=== PATIENT | male | born 1935 | race African-American/Black ===

== ENCOUNTER 2016-08-27 13:17 | Observation (INO) ==
[2016-08-27] MEDS ORDERED: MAGNESIUM SULF RIDER 2 GM in PREMIX 1 EACH IV PRN (14:28)
[2016-08-27] MEDS ORDERED: BISACODYL 5 MG TABLET PO PRN (14:28)
[2016-08-27] MEDS ORDERED: ACETAMINOPHEN 325 MG TABLET PO PRN (14:28)
[2016-08-27] MEDS ORDERED: ZALEPLON 5 MG CAPSULE PO PRN (14:28)
[2016-08-27] MEDS ORDERED: MAGNESIUM SULF RIDER 4 GM in PREMIX 1 EACH IV PRN (14:28)
[2016-08-27] MEDS ORDERED: ONDANSETRON 4 MG/2 ML VIAL IV PRN (14:28)
[2016-08-27] MEDS ORDERED: DOCUSATE SODIUM 100 MG CAPSULE PO PRN (14:28)
--- NOTE | 2016-08-27 14:47 | EKG Report ---
Stationary ECG Study 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
[2016-08-27 15:01] LABS: Basophils % 0.6 % (0.0-0.8); Eosinophils % 0.9 % (0.00-10.9); Hematocrit 41.9 VOL% (42.0-52.0); Hemoglobin 13.7 GM/DL (14.0-18.0); Immature Granulocytes % 0.2 %; Immature Granulocytes Absolute 0.01 #; Lymphocytes # 1.5 10*3/uL (1.4-4.0); Lymphocytes % 32.7 % (21.2-54.2); Mean Corpuscular HGB Conc 32.7 GM/DL (32-36); Mean Corpuscular Hemoglobin 30 PG (27-34); Mean Corpuscular Volume 90.1 FL (87-102); Mean Platelet Volume 11.6 FL (9.6-12.0); Monocytes # 0.5 10*3/uL (0.11-0.8); Monocytes % 10.5 % (1.7-12.7); Neutrophils # 2.6 10*3/uL (1.4-7.4); Neutrophils % 55.1 % (38.7-73.9); Platelet Count 221 T/CUMM (130-400); Red Blood Count 4.65 MC/CUMM (3.8-5.5); Red Cell Distribution Width 13.6 % (9.3-17.3); White Blood Count 4.7 T/CUMM (4-12)
[2016-08-27] MEDS: PANTOPRAZOLE 40 MG TABLET PO SCH (15:05)
--- NOTE | 2016-08-27 15:06 | XRay Report ---
Exam: XR chest 1V portable Indication: Shortness of breath Comparison study: September 17, 2008 Findings: Cardiac silhouette is borderline enlarged. Otherwise, the heart, mediastinum and bony structures are stable from prior. There is no focal consolidation, pneumothorax or pleural effusion identified. Impression: No acute cardiopulmonary process. Otherwise, no significant change. PROCEDURE INTERPRETED AT [facility] DEPARTMENT OF RADIOLOGY Final Report Signed by: Price Salinas
[2016-08-27] MEDS: SODIUM CHLORIDE 0.45% 1,000 ML IV SCH (15:22)
[2016-08-27 15:26] LABS: Troponin I Only 0.016 NG/ML (0.00-0.045)
--- NOTE | 2016-08-27 15:29 | Event Note ---
See scanned in H&P from clinic which serves as H&P during this admission. Stat CIEs, EKG and echo being ordered. Thyroid US for thyromegaly
[2016-08-27 15:31] LABS: Albumin 3.5 G/DL (3.4-5.0); Bilirubin,Total 0.4 MG/DL (0.2-1.0); Calcium 9.1 MG/DL (8.5-10.1); Osmolality,Calculated 286.8 MOS/KG (273-304); Thyroid Stimulating Hormone 0.903 uIU/ml (0.358-3.74); Total Protein 6.7 G/DL (6.4-8.3); Troponin I Only 0.019 NG/ML (0.00-0.045)
[2016-08-27] MEDS ORDERED: hydrALAZINE 20 MG/1 ML VIAL IV PRN (16:49)
[2016-08-27] MEDS ORDERED: ENOXAPARIN 100 MG/ML SYRINGE SUBCUT ONE (16:55)
[2016-08-27] MEDS ORDERED: DEXTROSE 50% 25 GM/50 ML VIAL IV PRN (17:04)
[2016-08-27] MEDS ORDERED: GLUCAGON 1 MG VIAL IM PRN (17:04)
--- NOTE | 2016-08-27 17:04 | Ultrasound Report ---
Exam: US thyroid Date: 08/27/2016 3:48 PM Comparison: None Indication: Left lobular thyroid enlargement Technique:[Multiple real-time scans were tender thyroid gland. Color-flow scans obtained. Ultrasound images were captured and stored.] Findings: The right lobe measures 68 x 33 x 35 mm. The left lobe measures 56 x 40 x 19 mm. Inhomogeneous echogenicity throughout both lobes. 18 x 18 x 17 mm predominantly solid nodule in the lower pole of the right lobe. 9 x 6 x 11 mm predominantly solid nodule in the midpole of the left lobe. Color flow documented. Impression: Enlargement of both lobes of the thyroid gland with inhomogeneous echogenicity throughout which could be related to multinodular goiter. Indeterminate solid bilateral nodules. Nuclear medicine MORENO uptake and thyroid scan, short-term follow-up thyroid ultrasound, or ultrasound guided thyroid biopsy may be helpful for further evaluation. The Ultrasound images were captured and stored. PROCEDURE INTERPRETED AT [facility] DEPARTMENT OF RADIOLOGY Final Report Signed by: Dr. Alisha Campos
[2016-08-27] MEDS: NITROGLYCERIN 2% OINT 1 INCH/GM PACK TOP SCH ×2 (17:36→17:55)
[2016-08-27] MEDS: ASPIRIN EC 325 MG TABLET PO SCH (17:37)
--- NOTE | 2016-08-27 17:40 | Event Note ---
H&P scan from the clinic. Please see this for details. The patient was seen and examined and interviewed today. I think he should undergo cardiac catheterization. We're going to schedule this for tomorrow. I discussed the case with Dr. Gallardo who will be performing the procedure.
[2016-08-27 17:56] LABS: PT Patient Result 10.8 SECS
[2016-08-27 18:10] LABS: Troponin I Only 0.015 NG/ML (0.00-0.045)
[2016-08-27 20:42] LABS: Troponin I Only 0.019 NG/ML (0.00-0.045)
[2016-08-27] MEDS ORDERED: CARVEDILOL 12.5 MG TABLET PO SCH (21:00)
[2016-08-27] MEDS: DOCUSATE SODIUM 100 MG CAPSULE PO SCH (21:10)
[2016-08-27] MEDS: SIMVASTATIN 20 MG TABLET PO SCH (21:10)
[2016-08-27] MEDS: CARVEDILOL 25 MG TABLET PO SCH (21:10)
[2016-08-27] MEDS: glipiZIDE 5 MG TABLET PO SCH (21:13)
[2016-08-27] MEDS: INSULIN REGULAR 100 UNIT/ML SUBCUT SCH (22:35)
[2016-08-28] MEDS: NITROGLYCERIN 2% OINT 1 INCH/GM PACK TOP SCH ×3 (01:50→12:19)
[2016-08-28 05:04] LABS: Basophils % 0.2 % (0.0-0.8); Eosinophils # 0.1 10*3/uL (0.0-0.87); Eosinophils % 1.3 % (0.00-10.9); Hematocrit 38.9 VOL% (42.0-52.0); Hemoglobin 12.9 GM/DL (14.0-18.0); Immature Granulocytes % 0.2 %; Immature Granulocytes Absolute 0.01 #; Lymphocytes # 1.6 10*3/uL (1.4-4.0); Lymphocytes % 32.6 % (21.2-54.2); Mean Corpuscular HGB Conc 33.2 GM/DL (32-36); Mean Corpuscular Hemoglobin 30 PG (27-34); Mean Corpuscular Volume 89.8 FL (87-102); Mean Platelet Volume 11.7 FL (9.6-12.0); Monocytes # 0.5 10*3/uL (0.11-0.8); Monocytes % 10.7 % (1.7-12.7); Neutrophils # 2.6 10*3/uL (1.4-7.4); Platelet Count 197 T/CUMM (130-400); Red Blood Count 4.33 MC/CUMM (3.8-5.5); Red Cell Distribution Width 13.5 % (9.3-17.3); White Blood Count 4.8 T/CUMM (4-12)
[2016-08-28 05:29] LABS: Calcium 8.5 MG/DL (8.5-10.1); Osmolality,Calculated 291.6 MOS/KG (273-304); Potassium 3.6 MMOL/L (3.5-5.1)
[2016-08-28 05:33] LABS: Bilirubin,Total 0.8 MG/DL (0.2-1.0); Calcium 8.5 MG/DL (8.5-10.1); Osmolality,Calculated 293.4 MOS/KG (273-304); Potassium 3.5 MMOL/L (3.5-5.1); Risk Ratio 2.6; Total Protein 6.1 G/DL (6.4-8.3); VLDL CHOLESTEROL 25.2 MG/DL
[2016-08-28] MEDS: SODIUM CHLORIDE 0.45% 1,000 ML IV SCH ×2 (05:39→15:19)
[2016-08-28] MEDS ORDERED: DIAZEPAM 5 MG TABLET PO ONE (07:00)
[2016-08-28] MEDS ORDERED: diphenhydrAMINE CAP 25 MG CAPSULE PO ONE (07:00)
[2016-08-28] MEDS ORDERED: MAGNESIUM SULF RIDER 2 GM in PREMIX 1 EACH IV PRN (07:00)
[2016-08-28] MEDS ORDERED: POTASSIUM CHLORIDE RIDER 10 MEQ in PREMIX 1 EACH IV PRN (07:00)
--- NOTE | 2016-08-28 07:23 | EKG Report ---
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
[2016-08-28] MEDS: POTASSIUM CHLORIDE 20 MEQ TABLET PO SCH (09:15)
[2016-08-28] MEDS: PANTOPRAZOLE 40 MG TABLET PO SCH (09:15)
[2016-08-28] MEDS: CARVEDILOL 25 MG TABLET PO SCH ×2 (09:15→20:34)
[2016-08-28] MEDS: INSULIN REGULAR 100 UNIT/ML SUBCUT SCH ×4 (09:15→20:45)
[2016-08-28] MEDS: ASPIRIN EC 325 MG TABLET PO SCH (09:15)
[2016-08-28] MEDS: glipiZIDE 5 MG TABLET PO SCH ×2 (09:16→20:34)
[2016-08-28] MEDS: DOCUSATE SODIUM 100 MG CAPSULE PO SCH ×2 (09:16→20:35)
--- NOTE | 2016-08-28 09:18 | Event Note ---
Given Mr. Irwin symptoms suggestive of accelerated angina, and history of previous coronary stent by his report, he is scheduled for left heart catheterization later today from right groin access. I discussed with the patient arrest and benefits of heart catheterization including but not limited to: , stroke, heart attack, vascular damage, reaction to medicine or dye, bleeding requiring blood transfusion, failure the procedure, possible need for planned her emergency heart surgery. I have answered all the patient's questions and the patient is agreeable to proceed.
[2016-08-28] MEDS ORDERED: LIDOCAINE 1% 20 ML VIAL ONE (12:52)
[2016-08-28] MEDS ORDERED: HYDROmorphone 2 MG/1 ML VIAL ONE (13:15)
[2016-08-28] MEDS ORDERED: MIDAZOLAM 2 MG/2 ML VIAL ONE (13:15)
[2016-08-28] MEDS ORDERED: ENOXAPARIN 30 MG/0.3 ML SYRINGE ONE (13:44)
[2016-08-28] MEDS ORDERED: ENOXAPARIN 60 MG/0.6 ML SYRINGE ONE (13:44)
[2016-08-28] MEDS ORDERED: TICAGRELOR 90 MG TABLET ONE (13:52)
[2016-08-28] MEDS ORDERED: ceFAZolin 1,000 MG VIAL ONE (14:09)
--- NOTE | 2016-08-28 14:23 | Cardiac Catheterization ---
Date of Procedure:: 08/28/16 Post-op diagnosis: same Procedure: Her seizures performed: 1. Coronary angiography 2. Angioplasty and stenting of critical mid LAD disease which only steno (2.75 x 24 Synergy) 3. Right femoral arterial reclosure with Angio-Seal device Brief clinical summary: Mr. Irwin 80-year-old with symptoms suggestive of exertional angina with history of previous CAD. He is followed by Dr. Aponte Description of procedure: After obtaining informed consent, the right groin was prepped and draped in the usual sterile fashion. Next a short 6 Armenian sheath was placed in the right femoral artery using a modified Seldinger technique, after the patient received IV sedation and local anesthetic. Next a JL4 catheter was advanced over a guidewire under fluoroscopic guidance, and was engaged to the left coronary artery after which angiography was performed in multiple views. This was then removed over a wire, and a JR4 catheter was advanced in similar fashion was engaged the right coronary artery after which angiography was performed in multiple views. Percutaneous coronary intervention wasn't performed as described below. After intervention, performed an angiogram of the sheath which showed that it was inserted in the right common femoral artery in a vessel suitable for closure. Hemostasis was obtained with Angio-Seal device with no residual bleeding. 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 Percutaneous coronary intervention: The patient arrived the cath of on aspirin. He was given loading dose of Brilinta on the table as well as 0.7 millions per kilo of intravenous Lovenox. An EBU 3.5 guiding catheter was advanced and provided suboptimal support. I tried advance a Prowater wire but it was clear that this was not adequate support. Therefore was removed over wire. Next an AL-1 guide was advanced but was too short. This is removed over wire nail to catheter was advanced which was the right size and fit the vessel well provided good support. Next a Prowater wire was advanced in the distal LAD with only minimal difficulty. Next a 2.5 x 20 noncompliant balloon was advanced across area of disease was flighted to nominal pressures. There was residual stenosis of nearly 50%. The balloon was removed and a 2.75 x 24 Synergy covered stent was advanced across her disease was deployed at nominal and eventually above nominal pressures with an excellent angiographic result disability was undersized prostate. Therefore the balloon was removed and a 3.5 x 15 noncompliant balloon was advanced in the proximal portion stent was dilated to nominal pressures and is still appear to be a little undersized. Therefore I redilated to rated burst pressure approximately 3.69 mm with a very good angina for result. The patient on she will without, occasion. Coronary angiography: Left main coronary artery has 30-40% proximal stenosis and is a large vessel. Left anterior descending artery is of average caliber and reaches the apex after giving off 3 thin diagonal branches. There is a tubular 90% high mid stenosis starting immediately after the takeoff of the first septal sanding machine operator. The circumflex gives off 2 thinner than average recently long OM branches as well as a tiny 13 and on for branches late. The right coronary artery is dominant but is smaller than average caliber. There is a 50% tubular proximal stenosis and a subtotal mid RCA occlusion after the takeoff of a thin acute marginal. The RCA is occluded distally. The PDA and posterior Lockamy so filling by [id number] collaterals. Impression: 1. Right dominant system (smaller than average caliber vessel) 2. Two-vessel coronary artery disease as described above including but limited to: A. 90% tubular high mid LAD stenosis B. Subtotal mid RCA with distal RCA occlusion with filling of the PDA and posterolaterals by [id number]-ku-tzcdw collaterals. 3. Status post angioplasty and stenting of mid LAD with 2.75 x 24 drug-eluting Synergy stent with excellent result after postdilated the proximal portion of the stent with 3.5 x 15 noncompliant balloon Recommendation discussion: I believe he she did very good result regarding stenting Mr. Irwin's severe mid LAD stenosis. His RCA disease has not changed much since 2008. Intervention could be considered here if he is symptomatic. He will need to continue on baby aspirin Brilinta. He'll need to avoid squatting or lifting for the next one week. Anesthesia: minimal conscious sedation Surgeon / Physician: Ryan Gallardo Sales Development Coordinator: other Estimated blood loss: minimal Specimens: none sent Condition: stable Disposition: floor - Medications / Follow-up
--- NOTE | 2016-08-28 14:45 | EKG Report ---
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
--- NOTE | 2016-08-28 15:22 | Discharge Summary ---
Hospital Course - Hospital Course Hospital Course: Mr. Irwin, 80-year-old -[place]ian male, routinely followed by Dr. Tunde Aponte. Patient was directly admitted from cardiovascular [place] [facility] with complaints of chest discomfort. He underwent elective cardiac catheterization August 28, 2016 with the following impression noted: Impression: 1. Right dominant system (smaller than average caliber vessel) 2. Two-vessel coronary artery disease as described above including but limited to: A. 90% tubular high mid LAD stenosis B. Subtotal mid RCA with distal RCA occlusion with filling of the PDA and posterolaterals by [id number]-ev-jcwky collaterals. 3. Status post angioplasty and stenting of mid LAD with 2.75 x 24 drug-eluting Synergy stent with excellent result after postdilated the proximal portion of the stent with 3.5 x 15 noncompliant balloon Recommendation discussion: Good results achieved with stenting of the mid LAD stenosis. RCA disease has not changed much since 2008. Intervention could be considered here if he is symptomatic. He tolerated the procedure well without complication was returned to the telemetry unit in stable condition. Morning of discharge, his labs were stable and he has been ambulating without difficulty. Having felt him at maximal medical therapy, patient is being discharged home in stable condition. Discharge medications include the following: He will be given a 1-2 week follow-up with Dr. Aponte at [facility] with the following labs to be obtained, BMP, magnesium, CBC Patient's primary care provider is Dr. Felipe Noe. During the hospital stay, thyroid ultrasound was performed with the following impression noted: Enlargement of both lobes of the thyroid gland with inhomogenous echogenicity throughout which could be related to multinodular goiter. Indeterminate solid bilateral nodules. Nuclear medicine MORENO uptake and thyroid scan, short-term follow-up thyroid ultrasound, or ultrasound-guided thyroid biopsy may be helpful for further evaluation. I have informed the patient and his of the findings. I am going to arrange for him to be followed by Dr. Felipe Noe in approximately 2 weeks for further workup and management of this condition. Discharge medications include the following: Aspirin 81 mg orally daily Brilinta 90 mg orally twice daily without fail. He is being given a prescription card Coreg 25 mg's orally twice daily Isosorbide mononitrate 30 mg's orally daily Lisinopril/HCT 20/12.5 mg 1 p.o. daily Nifedipine XL 30 mg orally twice daily Pantoprazole 40 mg orally daily Potassium chloride 20 mEq orally daily Zocor 20 orally nightly - Time spent with patient Time with patient DS: Greater than 30 minutes Diagnosis - Discharge Diagnosis (1) CAD (coronary artery disease) Status: Chronic (2) Chest pain Status: Resolved (3) Hypertension Status: Chronic (4) Dyslipidemia Status: Chronic (5) Abnormal thyroid ultrasound Status: Chronic (6) Diabetes Status: Chronic Specialty Discharge - Follow Up or Referrals Follow up with: Felipe Noe MD [Primary Care Provider] - 09/12/16 11:00 am () Tunde Aponte MD [Physician] - 09/05/16 (1:00pm LABS 1:30pm APPOINTMENT) Discharge Plan - Discharge Data Disposition: Disch To Home/Self Care Condition at Discharge: Stable Discharge Diet: heart healthy Activity: other (Post cath expectations) Hygiene: other (Post cath expectations) Weight Bearing at Discharge: other (Post cath expectations) Driving: other (Post cath expectations) Contact your physician if you experience:: fever over 101, Difficulty voiding, Redness or swelling, Nausea/Vomiting, Shortness of breath, Bleeding, pain uncontrolled by pain medications - Discharge Medications New Aspirin EC Tab 81 mg PO DAILY #30 tablet Isosorbide Mononitrate [Imdur] 30 mg PO DAILY #30 tablet Pantoprazole Tab [Protonix Tab] 40 mg PO DAILY #30 tablet Ticagrelor [Brilinta] 90 mg PO BID #60 tablet Carvedilol [Coreg] 25 mg PO BID #60 tablet Continue Lisinopril/Hydrochlorothiazide [Lisinopril-Hctz 20-12.5 mg Tab] 1 tablet PO ONCE glipiZIDE [Glipizide] 2.5 mg PO BEDTIME glipiZIDE [Glipizide] 5 mg PO DAILY Cholecalciferol (Vitamin D3) [Vitamin D3] 2,000 unit PO DAILY Docusate Sodium 100 mg PO BID Potassium Chloride 20 meq PO DAILY Simvastatin [Zocor] 20 mg PO BEDTIME NIFEdipine [Nifedipine ER] 60 mg PO DAILY Aspirin EC Tab 81 mg PO DAILY Discontinued Carvedilol [Carvedilol] 12.5 mg PO DAILY - Follow Up or Referral Follow Up: Felipe Noe MD [Primary Care Provider] - 09/12/16 11:00 am () Tunde Aponte MD [Physician] - 09/05/16 (1:00pm LABS 1:30pm APPOINTMENT) - Forms/Instructions Instructions: Coronary Artery Disease (GEN), Left Heart Catheterization (DC), Heart Healthy Diet (GEN), Coronary Intravascular Stent Placement (DC) Exam - Constitutional Vitals: Period Temp Pulse Resp BP Sys/Anand Pulse Ox Last 24 Hr 97.1 F-99.0 F 50-61 16-20 139-193/67-85 94-100 Exam: General: [Appears well with no apparent distress.] [Pleasant and cooperative. ] [Appears comfortable.] HEENT: [PERRL, normocephalic, atraumatic. Mucous membranes moist. No jaundice noted. Conjunctiva moist and clear, sclerae anicteric] Neck: No JVD/HJR, thyromegaly noted. No lymphadenopathy. No carotid bruit appreciated Cardiac: [Regular rate and rhythm.] [No murmur rub or gallop.] Lungs: [Clear to auscultation without accessory muscle use to assist the respiratory pattern.] Not requiring oxygen Abdomen: Soft, bowel sounds normoactive. Nontender and nondistended. No abdominal bruit or thrill noted. No masses noted. Musculoskeletal: No fluid collection. Decreased range of motion is noted. Extremities: Right groin free of hematoma or bruit, soft. No clubbing, cyanosis noted. [ No edema noted.] Upper extremity pulses 2+. Lower extremity pulses 2+. Capillary refill less than 3 seconds. Skin: No unusual lesions or rashes. No skin breakdown appreciated. Neuro: Awake, alert and oriented 3. Moves all extremities well without hemiparesis or paralysis. No essential tremor is appreciated. Discharge Results Procedures and tests throughout hospitalization: Pending Orders 08/28/16 08:39 CL heart Routine 08/28/16 14:11 Troponin,CKMB & Ck Total Routine 08/29/16 04:00 Basic Metabolic Panel IN AM Comp Blood Count Auto Diff IN AM Troponin,CKMB & Ck Total IN AM Labs on day of discharge: Labs from last 24 hours 08/28/16 08/28/16 08/28/16 11:53 08:32 04:34 WBC RBC Hgb Hct MCV MCH MCHC RDW Plt Count MPV Neut % (Auto) Lymph % (Auto) [place] % (Auto) Eos % (Auto) Baso % (Auto) Neut # (Auto) Lymph # (Auto) [place] # (Auto) Eos # (Auto) Baso # (Auto) Immature Gran % Nucleated RBC % Immature Gran # Nucleated RBCs # INR PT Patient/Control Mix Sodium 147 H Potassium 3.5 Chloride 106 Carbon Dioxide 29 Anion Gap 15.5 H BUN 18 Creatinine 1.30 GFR Calculation 75 BUN/Creatinine Ratio 13.00 Glucose 97 POC Glucose 196 H 100 Calculated Osmolality 293.4 Calcium 8.5 Total Bilirubin 0.80 AST 12 ALT 13 L Alkaline Phosphatase 94 Total Creatine Kinase CK-MB (CK-2) Troponin I B-Natriuretic Peptide Total Protein 6.1 L Albumin 3.0 L Globulin 3.1 Albumin/Globulin Ratio 0.9 L Triglycerides 126 Cholesterol 112 LDL Cholesterol 56.0 VLDL Cholesterol 25.2 HDL Cholesterol 43 Heart Disease Risk Ratio 2.60 [facility] 3rd Generation 08/28/16 08/28/16 08/27/16 04:34 04:34 20:06 WBC 4.8 RBC 4.33 Hgb 12.9 L Hct 38.9 L MCV 89.8 MCH 30 MCHC 33.2 RDW 13.5 Plt Count 197 MPV 11.7 Neut % (Auto) 55.0 Lymph % (Auto) 32.6 Talbot % (Auto) 10.7 Eos % (Auto) 1.3 Baso % (Auto) 0.2 Neut # (Auto) 2.6 Lymph # (Auto) 1.6 [place]bot # (Auto) 0.5 Eos # (Auto) 0.1 Baso # (Auto) 0.0 Immature Gran % 0.2 Nucleated RBC % 0.0 Immature Gran # 0.01 Nucleated RBCs # 0.00 INR PT Patient/Control Mix Sodium 146 H Potassium 3.6 Chloride 106 Carbon Dioxide 29 Anion Gap 14.6 BUN 18 Creatinine 1.30 GFR Calculation 75 BUN/Creatinine Ratio 13.00 Glucose 98 POC Glucose Calculated Osmolality 291.6 Calcium 8.5 Total Bilirubin AST ALT Alkaline Phosphatase Total Creatine Kinase 55 CK-MB (CK-2) < 1.0 Troponin I 0.019 B-Natriuretic Peptide Total Protein Albumin Globulin Albumin/Globulin Ratio Triglycerides Cholesterol LDL Cholesterol VLDL Cholesterol HDL Cholesterol Heart Disease Risk Ratio [facility] 3rd Generation 08/27/16 08/27/16 08/27/16 20:05 17:00 17:00 WBC RBC Hgb Hct MCV MCH MCHC RDW Plt Count MPV Neut % (Auto) Lymph % (Auto) [place] % (Auto) Eos % (Auto) Baso % (Auto) Neut # (Auto) Lymph # (Auto) [place] # (Auto) Eos # (Auto) Baso # (Auto) Immature Gran % Nucleated RBC % Immature Gran # Nucleated RBCs # INR 1.0 PT Patient/Control Mix 10.8 Sodium Potassium Chloride Carbon Dioxide Anion Gap BUN Creatinine GFR Calculation BUN/Creatinine Ratio Glucose POC Glucose 160 H Calculated Osmolality Calcium Total Bilirubin AST ALT Alkaline Phosphatase Total Creatine Kinase 68 CK-MB (CK-2) < 1.0 Troponin I 0.015 B-Natriuretic Peptide Total Protein Albumin Globulin Albumin/Globulin Ratio Triglycerides Cholesterol LDL Cholesterol VLDL Cholesterol HDL Cholesterol Heart Disease Risk Ratio [facility] 3rd Generation 08/27/16 08/27/16 08/27/16 14:44 14:43 14:43 WBC RBC Hgb Hct MCV MCH MCHC RDW Plt Count MPV Neut % (Auto) Lymph % (Auto) [place] % (Auto) Eos % (Auto) Baso % (Auto) Neut # (Auto) Lymph # (Auto) [place] # (Auto) Eos # (Auto) Baso # (Auto) Immature Gran % Nucleated RBC % Immature Gran # Nucleated RBCs # INR PT Patient/Control Mix Sodium Potassium Chloride Carbon Dioxide Anion Gap BUN Creatinine GFR Calculation BUN/Creatinine Ratio Glucose POC Glucose Calculated Osmolality Calcium Total Bilirubin AST ALT Alkaline Phosphatase Total Creatine Kinase 60 58 CK-MB (CK-2) < 1.0 < 1.0 Troponin I 0.016 0.019 B-Natriuretic Peptide 79 Total Protein Albumin Globulin Albumin/Globulin Ratio Triglycerides Cholesterol LDL Cholesterol VLDL Cholesterol HDL Cholesterol Heart Disease Risk Ratio [facility] 3rd Generation 08/27/16 14:43 WBC RBC Hgb Hct MCV MCH MCHC RDW Plt Count MPV Neut % (Auto) Lymph % (Auto) [place] % (Auto) Eos % (Auto) Baso % (Auto) Neut # (Auto) Lymph # (Auto) [place] # (Auto) Eos # (Auto) Baso # (Auto) Immature Gran % Nucleated RBC % Immature Gran # Nucleated RBCs # INR PT Patient/Control Mix Sodium 144 Potassium 4.0 Chloride 104 Carbon Dioxide 33 H Anion Gap 11.0 BUN 16 Creatinine 1.40 H GFR Calculation 68 BUN/Creatinine Ratio 11.00 Glucose 94 POC Glucose Calculated Osmolality 286.8 Calcium 9.1 Total Bilirubin 0.40 AST 13 ALT 17 Alkaline Phosphatase 103 Total Creatine Kinase CK-MB (CK-2) Troponin I B-Natriuretic Peptide Total Protein 6.7 Albumin 3.5 Globulin 3.2 Albumin/Globulin Ratio 1.0 L Triglycerides Cholesterol LDL Cholesterol VLDL Cholesterol HDL Cholesterol Heart Disease Risk Ratio TSH 3rd Generation 0.903 - Imaging and Cardiology Cardiology Procedure: report reviewed by me Procedure: Chest x-ray: report reviewed by me DS: Provider Date of admission: 08/27/16 14:28 Primary care physician: Felipe Noe MD Attending physician on admission: Tunde Aponte MD Consults: 08/27/16 14:40 Consult to Pharmacy [CONS] Routine Reason for Pharmacy Consult: Adjust Meds Renal Funct 08/28/16 14:12 Consult to Cardiac Rehabilitation [CONS] Routine Reason for Cardiac Rehabilitation: Appt Out Pt Cardiac Rehab Consult Comment: stent; cad Discharging clinician: Zandra العلي NP Expected date of discharge: 08/29/16
[2016-08-28] MEDS: ISOSORBIDE MONONITRATE 30 MG TABLET PO SCH (15:33)
--- NOTE | 2016-08-28 16:09 | Cardiology Progress Note ---
Assessment and Plan (1) Status post insertion of drug-eluting stent into left anterior descending ( LAD) artery for coronary artery disease Status: Acute Assessment and plan: He is doing well status post LAD stenting. If he continues to do well we will probably builds discharged home tomorrow. Current Visit: Yes (2) CAD (coronary artery disease) Status: Chronic Current Visit: Yes (3) Diabetes Status: Chronic Current Visit: Yes (4) Dyslipidemia Status: Chronic Current Visit: Yes (5) Hypertension Status: Chronic Current Visit: Yes Cardiology - PN: Subj Interval history: The patient is doing well after his intervention. He underwent stenting of his mid LAD as noted in the cath report. There are no problems or complications. He denies any new complaints today such as angina, palpitations, or dyspnea. Current Medications Acetaminophen (Tylenol Tab) 650 mg PO Q4H PRN PRN Reason: Fever, Headache, Mild Pain Hydrocodone Bitart/Acetaminophen (Timblin 5-325) 1 tablet PO Q4H PRN PRN Reason: Pain Mild (1-3) Aspirin () 325 mg PO DAILY [facility] Last Admin: 08/28/16 09:15 Dose: 325 mg Aspirin () 81 mg PO DAILY [facility] Bisacodyl (Dulcolax Tab) 10 mg PO DAILY PRN PRN Reason: Constipation Carvedilol (Coreg) 25 mg PO BID [facility] Last Admin: 08/28/16 09:15 Dose: 25 mg Dextrose/Water (D50) 25 gm IV PRN PRN PRN Reason: Hypoglycemia with IV access Docusate Sodium (Colace Cap) 100 mg PO BID PRN PRN Reason: Constipation Docusate Sodium (Colace Cap) 100 mg PO BID [facility] Last Admin: 08/28/16 09:16 Dose: Not Given Glipizide (Glucotrol) 5 mg PO DAILY [facility] Last Admin: 08/28/16 09:16 Dose: Not Given Glipizide (Glucotrol) 2.5 mg PO BEDTIME [facility] Last Admin: 08/27/16 21:13 Dose: 2.5 mg Glucagon () 1 mg IM PRN PRN PRN Reason: Hypoglycemia w/o IV access Hydralazine HCl (Apresoline Inj) 10 mg IV Q1-2H PRN PRN Reason: Hypertension Hydromorphone HCl (Dilaudid Inj) 0.5 mg IV Q4H PRN PRN Reason: Pain Severe (8-10) Sodium Chloride (1/2ns) 1,000 mls @ 75 mls/hr IV .[id number] [facility] Last Admin: 08/28/16 15:19 Dose: 75 mls/hr Magnesium Sulfate 2 gm/ Premix 50 mls @ 25 mls/hr IV .PER PROTOCOL PRN; Protocol PRN Reason: Per Protocol Magnesium Sulfate 4 gm/ Premix 100 mls @ 25 mls/hr IV .PER PROTOCOL PRN; Protocol PRN Reason: Per Protocol Magnesium Sulfate 2 gm/ Premix 50 mls @ 25 mls/hr IV ONCE PRN PRN Reason: Magnesium less than 1.8 Potassium Chloride 10 meq/ (Premix) 100 mls @ 100 mls/hr IV Q1H PRN PRN Reason: Potassium less than 3.5 Insulin Human Regular (Humulin R) 0 unit SUBCUT ACHS [facility] PRN Reason: Protocol Last Admin: 08/28/16 16:02 Dose: Not Given Isosorbide Mononitrate (Imdur) 30 mg PO DAILY [facility] Last Admin: 08/28/16 15:33 Dose: 30 mg Nifedipine (Procardia Xl) 60 mg PO DAILY [facility] Last Admin: 08/28/16 09:15 Dose: 60 mg Ondansetron HCl (Zofran Inj) 4 mg IV Q4H PRN PRN Reason: Nausea Pantoprazole Sodium (Protonix Tab) 40 mg PO DAILY [facility] Last Admin: 08/28/16 09:15 Dose: 40 mg Potassium Chloride (K Dur) 20 meq PO DAILY [facility] Last Admin: 08/28/16 09:15 Dose: 20 meq Simvastatin (Zocor) 20 mg PO BEDTIME [facility] Last Admin: 08/27/16 21:10 Dose: 20 mg Ticagrelor (Brilinta) 90 mg PO BID [facility] Zaleplon (Sonata) 5 mg PO BEDTIME PRN PRN Reason: Insomnia . Exam (Progress Note) - Constitutional Vitals: Period Temp Pulse Resp BP Sys/Anand Pulse Ox Last 24 Hr 97.5 F-99.0 F 50-61 16-20 139-182/67-85 94-100 Exam: General: Appears well developed, well nourished, no apparent distress HEENT: Normocephalic, atraumatic Cardiac: Reg Rate and Rhythm, 2/6 systolic Murmur, no gallop, no rub Lungs: Clear to auscultation, No Wheeze, Rales, Rhonchi Neuro: Cranial Nerve 2-12 Intact, Motor Function Grossly Intact Abdomen: Soft, Active Bowel Sounds, No Masses, No Pulsations/Bruits Skin: Normal color, no rash Extremities: No Clubbing, No Cyanosis, No Edema, Normal Upper Extr. Pulses Musculoskeletal: No acute abnormality noted Psychiatric: The patient does not appear to be anxious or depressed Result/EKG - Labs CBC & BMP: 08/28/16 04:34 08/28/16 04:34 Lab Results: I have reviewed the past 24 hour labs Labs: Laboratory Results - last 24 hr 08/27/16 08/27/16 08/27/16 17:00 17:00 20:05 WBC RBC Hgb Hct MCV MCH MCHC RDW Plt Count MPV Neut % (Auto) Lymph % (Auto) [place] % (Auto) Eos % (Auto) Baso % (Auto) Neut # (Auto) Lymph # (Auto) [place] # (Auto) Eos # (Auto) Baso # (Auto) Immature Gran % Nucleated RBC % Immature Gran # Nucleated RBCs # INR 1.0 PT Patient/Control Mix 10.8 Sodium Potassium Chloride Carbon Dioxide Anion Gap BUN Creatinine GFR Calculation BUN/Creatinine Ratio Glucose POC Glucose 160 H Calculated Osmolality Calcium Total Bilirubin AST ALT Alkaline Phosphatase Total Creatine Kinase 68 CK-MB (CK-2) < 1.0 Troponin I 0.015 Total Protein Albumin Globulin Albumin/Globulin Ratio Triglycerides Cholesterol LDL Cholesterol VLDL Cholesterol HDL Cholesterol Heart Disease Risk Ratio 08/27/16 08/28/16 08/28/16 20:06 04:34 04:34 WBC 4.8 RBC 4.33 Hgb 12.9 L Hct 38.9 L MCV 89.8 MCH 30 MCHC 33.2 RDW 13.5 Plt Count 197 MPV 11.7 Neut % (Auto) 55.0 Lymph % (Auto) 32.6 [place] % (Auto) 10.7 Eos % (Auto) 1.3 Baso % (Auto) 0.2 Neut # (Auto) 2.6 Lymph # (Auto) 1.6 [place] # (Auto) 0.5 Eos # (Auto) 0.1 Baso # (Auto) 0.0 Immature Gran % 0.2 Nucleated RBC % 0.0 Immature Gran # 0.01 Nucleated RBCs # 0.00 INR PT Patient/Control Mix Sodium 146 H Potassium 3.6 Chloride 106 Carbon Dioxide 29 Anion Gap 14.6 BUN 18 Creatinine 1.30 GFR Calculation 75 BUN/Creatinine Ratio 13.00 Glucose 98 POC Glucose Calculated Osmolality 291.6 Calcium 8.5 Total Bilirubin AST ALT Alkaline Phosphatase Total Creatine Kinase 55 CK-MB (CK-2) < 1.0 Troponin I 0.019 Total Protein Albumin Globulin Albumin/Globulin Ratio Triglycerides Cholesterol LDL Cholesterol VLDL Cholesterol HDL Cholesterol Heart Disease Risk Ratio 08/28/16 08/28/16 08/28/16 04:34 08:32 11:53 WBC RBC Hgb Hct MCV MCH MCHC RDW Plt Count MPV Neut % (Auto) Lymph % (Auto) [place] % (Auto) Eos % (Auto) Baso % (Auto) Neut # (Auto) Lymph # (Auto) [place] # (Auto) Eos # (Auto) Baso # (Auto) Immature Gran % Nucleated RBC % Immature Gran # Nucleated RBCs # INR PT Patient/Control Mix Sodium 147 H Potassium 3.5 Chloride 106 Carbon Dioxide 29 Anion Gap 15.5 H BUN 18 Creatinine 1.30 GFR Calculation 75 BUN/Creatinine Ratio 13.00 Glucose 97 POC Glucose 100 196 H Calculated Osmolality 293.4 Calcium 8.5 Total Bilirubin 0.80 AST 12 ALT 13 L Alkaline Phosphatase 94 Total Creatine Kinase CK-MB (CK-2) Troponin I Total Protein 6.1 L Albumin 3.0 L Globulin 3.1 Albumin/Globulin Ratio 0.9 L Triglycerides 126 Cholesterol 112 LDL Cholesterol 56.0 VLDL Cholesterol 25.2 HDL Cholesterol 43 Heart Disease Risk Ratio 2.60 08/28/16 15:45 WBC RBC Hgb Hct MCV MCH MCHC RDW Plt Count MPV Neut % (Auto) Lymph % (Auto) [place] % (Auto) Eos % (Auto) Baso % (Auto) Neut # (Auto) Lymph # (Auto) [place] # (Auto) Eos # (Auto) Baso # (Auto) Immature Gran % Nucleated RBC % Immature Gran # Nucleated RBCs # INR PT Patient/Control Mix Sodium Potassium Chloride Carbon Dioxide Anion Gap BUN Creatinine GFR Calculation BUN/Creatinine Ratio Glucose POC Glucose 135 H Calculated Osmolality Calcium Total Bilirubin AST ALT Alkaline Phosphatase Total Creatine Kinase CK-MB (CK-2) Troponin I Total Protein Albumin Globulin Albumin/Globulin Ratio Triglycerides Cholesterol LDL Cholesterol VLDL Cholesterol HDL Cholesterol Heart Disease Risk Ratio - EKG EKG results: interpreted by me Quality Measures - VTE Contraindication to Pharmacological VTE Prophylaxis: Already on Theraputic Agent , No Prophylaxis Needed Specialty Discharge - Follow Up or Referrals Follow up with: Felipe Noe MD [Primary Care Provider] - (2 weeks. Abnormal thyroid US) Tunde Aponte MD [Physician] - 1 Week (BMP, Mg, CBC. EKG)
[2016-08-28 16:33] LABS: Troponin I Only < 0.015 NG/ML (0.00-0.045)
--- NOTE | 2016-08-28 17:10 | ECHO Report ---
Sathish Irwin Exam Date: 08/28/2016 09:10 Referring Physician: Technologist: Shaina Burgos RDCS Age: 80 Ht (in): Wt (lb): Gender: M Exam Location: [facility] Echo Indications: Chest pain, unspecified, Shortness of breath, CAD, Essential (primary) hypertension, Chronic kidney disease, unspecified, Hyperlipidemia, unspecified, Abnormal electrocardiogram [ECG] [EKG] BP: / HR: Rhythm: Sinus Technical Quality: IMPRESSIONS Mildly increased left atrial size. Mildly thickened mitral valve with mild mitral regurgitation. Trace aortic valve regurgitation. Trace to mild tricuspid valve regurgitation. MEASUREMENTS (Male / Female) Normal Values 2D ECHO LV Diastolic Diameter PLAX 5.1 cm 4.2 - 5.9 / 3.9 - 5.3 cm LV Systolic Diameter PLAX 2.9 cm LV Fractional Shortening PLAX 42.2 % IVS Diastolic Thickness 1.0 cm 0.6 - 1.0 / 0.6 - 0.9 cm LVPW Diastolic Thickness 1.0 cm 0.6 - 1.0 / 0.6 - 0.9 cm RV Internal Dim ED PLAX 3.0 cm Aortic Root Diameter 4.8 cm LA Systolic Diameter LX 4.4 cm 3.0 - 4.0 / 2.7 - 3.8 cm DOPPLER TR Peak Velocity 373.0 cm/s TR Peak Gradient 55.7 mmHg FINDINGS Left Ventricle Normal left ventricular cavity size. Normal left ventricular wall thickness. Left ventricular ejection fraction is estimated at 55 %. Right Ventricle The right ventricle is normal in size and function. Right Atrium The right atrium is grossly normal Left Atrium Mildly increased left atrial size. Mitral Valve Mildly thickened mitral valve with mild mitral regurgitation. Aortic Valve The aortic valve is trileaflet and has normal motion. Trace aortic valve regurgitation. Tricuspid Valve Morphologically normal tricuspid valve. Trace to mild tricuspid valve regurgitation. Tricuspid regurgitation velocities suggest a PAP of 50 mmHg. Pulmonic Valve Morphologically normal pulmonic valve without significant stenosis. There is no pulmonic regurgitation. Pericardium Normal pericardium without effusion. Aorta Normal ascending aorta dimension. Tunde Aponte (Electronically Signed) Final Date: 28 August 2016 17:09
[2016-08-28] MEDS: SIMVASTATIN 20 MG TABLET PO SCH (20:33)
[2016-08-28] MEDS: TICAGRELOR 90 MG TABLET PO SCH (20:35)
[2016-08-28] MEDS ORDERED: ALUMINUM/MAGNES/SIMETH MAX STR 30 ML UDCUP PO PRN (22:04)
[2016-08-28] MEDS ORDERED: FAMOTIDINE 20 MG TABLET PO ONE (22:05)
[2016-08-28] MEDS: HYDROmorphone 2 MG/1 ML VIAL IV PRN (23:44)
[2016-08-29] MEDS: SODIUM CHLORIDE 0.45% 1,000 ML IV SCH (03:22)
[2016-08-29 04:54] LABS: Basophils % 0.3 % (0.0-0.8); Eosinophils # 0.1 10*3/uL (0.0-0.87); Eosinophils % 0.9 % (0.00-10.9); Hematocrit 38.3 VOL% (42.0-52.0); Hemoglobin 12.8 GM/DL (14.0-18.0); Immature Granulocytes % 0.3 %; Immature Granulocytes Absolute 0.02 #; Lymphocytes # 1.3 10*3/uL (1.4-4.0); Lymphocytes % 18.9 % (21.2-54.2); Mean Corpuscular HGB Conc 33.4 GM/DL (32-36); Mean Corpuscular Hemoglobin 30 PG (27-34); Mean Corpuscular Volume 88.2 FL (87-102); Mean Platelet Volume 11.8 FL (9.6-12.0); Monocytes # 0.5 10*3/uL (0.11-0.8); Monocytes % 6.6 % (1.7-12.7); Neutrophils # 5.1 10*3/uL (1.4-7.4); Platelet Count 213 T/CUMM (130-400); Red Blood Count 4.34 MC/CUMM (3.8-5.5); Red Cell Distribution Width 13.6 % (9.3-17.3)
[2016-08-29] MEDS: HYDROmorphone 2 MG/1 ML VIAL IV PRN (05:03)
[2016-08-29 05:21] LABS: Calcium 8.6 MG/DL (8.5-10.1); Magnesium 2.1 MG/DL (1.8-2.4); Osmolality,Calculated 286.1 MOS/KG (273-304)
--- NOTE | 2016-08-29 07:10 | EKG Report ---
Stationary ECG Study [facility] Test Date: 08/29/2016 7:10:49 AM Pat Name: HENRIETTA HERRERA Department: Room: 270 Gender: M [employer]: JF : [id number] Requested by: Ryan Silverio Order Number: [id number] Reading MD: MARY HALE Intervals [place] Rate: 56 P: 51 KS: 162 QRS: 83 QRSD: 166 T: -71 QT: 472 QTc: 465 Interpretive Statements SINUS RHYTHM WITH OCCASIONAL VENTRICULAR PREMATURE COMPLEXES LEFT BUNDLE BRANCH BLOCK, rate dependent Electronically Signed On 08-31-16 12:48:28 CDT by MARY HALE [email or web address]
--- NOTE | 2016-08-29 08:41 | Event Note ---
Patient had chest soreness yesterday after the cath. This morning, he is feeling better. He still is having some "soreness". He tells me he wants to go home today and does not want to have to stay another day. I have asked him to walk around and evaluate his chest "soreness". EKG this morning has been reviewed. Troponin has been reviewed from this morning and, as expected, it is elevated post PCI. Will reevaluate around noon and hopefully, send patient home.
[2016-08-29] MEDS: TICAGRELOR 90 MG TABLET PO SCH (08:49)
[2016-08-29] MEDS: POTASSIUM CHLORIDE 20 MEQ TABLET PO SCH (08:49)
[2016-08-29] MEDS: PANTOPRAZOLE 40 MG TABLET PO SCH (08:49)
[2016-08-29] MEDS: ISOSORBIDE MONONITRATE 30 MG TABLET PO SCH (08:49)
[2016-08-29] MEDS: INSULIN REGULAR 100 UNIT/ML SUBCUT SCH ×2 (08:50→12:16)
[2016-08-29] MEDS: CARVEDILOL 25 MG TABLET PO SCH (08:50)
[2016-08-29] MEDS: DOCUSATE SODIUM 100 MG CAPSULE PO SCH (08:50)
[2016-08-29] MEDS: glipiZIDE 5 MG TABLET PO SCH (08:50)
[2016-08-29] MEDS ORDERED: LISINOPRIL/HCTZ 20-12.5 MG TABLET PO ONE (09:00)
[2016-08-29] MEDS ORDERED: ASPIRIN EC 81 MG TABLET PO SCH (09:00)
[2016-08-29 12:26] VITALS: BP 153/73
== END 2016-08-29 13:49 | disposition home or self-care (01) ==
LOC: INTOOBSV 14:12 → N.TELES 14:12
PROVIDERS: ADMIT Internal Medicine Cardiovascular Disease; ATTEND Internal Medicine Cardiovascular Disease

== ENCOUNTER 2018-04-04 11:32 | Inpatient (IN) ==
[2018-04-04] MEDS ORDERED: ASPIRIN CHEW 81 MG TABLET PO STA (12:02)
[2018-04-04 12:11] LABS: Basophils % 0.5 % (0.0-0.8); Eosinophils # 0.1 10*3/uL (0.0-0.87); Eosinophils % 1.1 % (0.00-10.9); Hemoglobin 13.6 GM/DL (14.0-18.0); Immature Granulocytes % 0.2 %; Immature Granulocytes Absolute 0.01 #; Lymphocytes # 1.3 10*3/uL (1.4-4.0); Lymphocytes % 23.5 % (21.2-54.2); Mean Corpuscular HGB Conc 33.2 GM/DL (32-36); Mean Corpuscular Hemoglobin 31 PG (27-34); Mean Corpuscular Volume 93.2 FL (87-102); Mean Platelet Volume 11.4 FL (9.6-12.0); Monocytes # 0.4 10*3/uL (0.11-0.8); Monocytes % 7.6 % (1.7-12.7); Neutrophils # 3.7 10*3/uL (1.4-7.4); Neutrophils % 67.1 % (38.7-73.9); Platelet Count 199 T/CUMM (130-400); Red Cell Distribution Width 13.1 % (9.3-17.3); White Blood Count 5.5 T/CUMM (4-12)
[2018-04-04] MEDS ORDERED: ASPIRIN 325 MG TABLET ONE (12:11)
[2018-04-04] MEDS ORDERED: ASPIRIN 325 MG TABLET PO STA (12:17)
[2018-04-04 12:44] LABS: Alanine Aminotransferase 18 U/L (16-61); Albumin 3.6 G/DL (3.4-5.0); Alkaline Phosphatase 106 U/L (45-117); Aspartate Amino Transferase 18 U/L (0-37); Bilirubin,Direct < 0.100 MG/DL (0.0-0.20); Bilirubin,Indirect 0.3 MG/DL (0.0-1.0); Bilirubin,Total < 0.39 MG/DL (0.2-1.0); Blood Urea Nitrogen 30 MG/DL (7-18); Calcium 9.7 MG/DL (8.5-10.1); Glucose 177 MG/DL (74-106); Osmolality,Calculated 284.7 MOS/KG (273-304); Potassium 4.2 MMOL/L (3.5-5.1); Sodium 138 MMOL/L (136-145); Troponin I < 0.015 NG/ML (0.00-0.045)
[2018-04-04] MEDS ORDERED: ENOXAPARIN 80 MG/0.8 ML SYRINGE SUBCUT STA (13:55)
[2018-04-04] MEDS ORDERED: ASPIRIN EC 325 MG TABLET PO SCH (14:00)
[2018-04-04] MEDS ORDERED: DOCUSATE SODIUM 100 MG CAPSULE PO PRN (17:37)
[2018-04-04] MEDS ORDERED: COLCHICINE 0.6 MG TABLET PO PRN (17:37)
[2018-04-04 20:17] LABS: Apearance,Urine CLEAR (Clear); Bilirubin,Urine Negative (Negative); Blood, Urine Negative (Negative); Glucose,Urine (UA) Negative (Negative); Hyaline Casts,Urine 4 /LPF (0-3); Ketones,Urine Negative (Negative); Mucus,Urine Occasional /LPF (Occasional); Nitrite,Urine Negative (Negative); Protein,Urine Negative; RBC,Urine <1 /HPF (0-4); Urine Color Straw (Yellow); Urine Specific Gravity 1.008 (1.001-1.035); Urine Urobilinogen < 2.0 EU/DL (0.2-1.0)
[2018-04-04] MEDS: PANTOPRAZOLE 40 MG TABLET PO SCH (20:30)
[2018-04-04] MEDS: ASCORBIC ACID 500 MG TABLET PO SCH (20:30)
[2018-04-04] MEDS: SENNA 8.6 MG TABLET PO SCH (20:30)
[2018-04-04] MEDS: LISINOPRIL 20 MG TABLET PO SCH (20:30)
[2018-04-04] MEDS: glipiZIDE 5 MG TABLET PO SCH (20:30)
[2018-04-04] MEDS: CARVEDILOL 25 MG TABLET PO SCH (20:30)
[2018-04-05 03:47] LABS: Basophils % 0.4 % (0.0-0.8); Eosinophils # 0.1 10*3/uL (0.0-0.87); Eosinophils % 1.1 % (0.00-10.9); Hematocrit 36.9 VOL% (42.0-52.0); Hemoglobin 12.2 GM/DL (14.0-18.0); Immature Granulocytes % 0.2 %; Immature Granulocytes Absolute 0.01 #; Lymphocytes # 1.6 10*3/uL (1.4-4.0); Lymphocytes % 29.6 % (21.2-54.2); Mean Corpuscular HGB Conc 33.1 GM/DL (32-36); Mean Corpuscular Hemoglobin 30 PG (27-34); Mean Platelet Volume 11.4 FL (9.6-12.0); Monocytes # 0.4 10*3/uL (0.11-0.8); Monocytes % 8.4 % (1.7-12.7); Neutrophils # 3.2 10*3/uL (1.4-7.4); Neutrophils % 60.3 % (38.7-73.9); Platelet Count 186 T/CUMM (130-400); Red Blood Count 4.01 MC/CUMM (3.8-5.5); Red Cell Distribution Width 13.2 % (9.3-17.3); White Blood Count 5.2 T/CUMM (4-12)
[2018-04-05 04:09] LABS: Calcium 8.7 MG/DL (8.5-10.1); Osmolality,Calculated 283.3 MOS/KG (273-304)
[2018-04-05 04:31] LABS: Cholesterol 157 MG/DL (50-200); HDL Cholesterol 42 MG/DL (40-60); Risk Ratio 3.74; Triglycerides 64 MG/DL (2-150); Troponin I < 0.015 NG/ML (0.00-0.045); VLDL CHOLESTEROL 12.8 MG/DL
[2018-04-05] MEDS: CHOLECALCIFEROL 1,000 UNIT TABLET PO SCH (09:06)
[2018-04-05] MEDS: CLOPIDOGREL 75 MG TABLET PO SCH (09:06)
[2018-04-05] MEDS: hydroCHLOROthiazide 25 MG TABLET PO SCH (09:06)
[2018-04-05] MEDS: SPIRONOLACTONE 25 MG TABLET PO SCH (09:06)
[2018-04-05] MEDS: LISINOPRIL 20 MG TABLET PO SCH ×2 (09:07→20:15)
[2018-04-05] MEDS: CARVEDILOL 25 MG TABLET PO SCH ×2 (09:07→20:15)
[2018-04-05] MEDS: glipiZIDE 5 MG TABLET PO SCH ×2 (09:07→20:15)
[2018-04-05] MEDS: ASPIRIN EC 81 MG TABLET PO SCH (09:07)
[2018-04-05] MEDS: PANTOPRAZOLE 40 MG TABLET PO SCH ×2 (09:07→20:14)
[2018-04-05] MEDS: ASCORBIC ACID 500 MG TABLET PO SCH (20:14)
[2018-04-05] MEDS: SENNA 8.6 MG TABLET PO SCH (20:15)
[2018-04-06 03:57] LABS: Basophils % 0.4 % (0.0-0.8); Eosinophils # 0.1 10*3/uL (0.0-0.87); Eosinophils % 1.1 % (0.00-10.9); Hemoglobin 12.2 GM/DL (14.0-18.0); Immature Granulocytes % 0.2 %; Immature Granulocytes Absolute 0.01 #; Lymphocytes # 1.6 10*3/uL (1.4-4.0); Lymphocytes % 29.4 % (21.2-54.2); Mean Corpuscular Hemoglobin 31 PG (27-34); Mean Platelet Volume 11.5 FL (9.6-12.0); Monocytes # 0.5 10*3/uL (0.11-0.8); Monocytes % 8.6 % (1.7-12.7); Neutrophils # 3.3 10*3/uL (1.4-7.4); Neutrophils % 60.3 % (38.7-73.9); Platelet Count 173 T/CUMM (130-400); Red Blood Count 3.98 MC/CUMM (3.8-5.5); Red Cell Distribution Width 13.1 % (9.3-17.3); White Blood Count 5.5 T/CUMM (4-12)
[2018-04-06 04:14] LABS: Calcium 8.5 MG/DL (8.5-10.1); Osmolality,Calculated 284.5 MOS/KG (273-304); Potassium 3.9 MMOL/L (3.5-5.1)
[2018-04-06 04:20] LABS: Troponin I < 0.015 NG/ML (0.00-0.045)
[2018-04-06 08:07] VITALS: BP 121/59
[2018-04-06] MEDS ORDERED: MAGNESIUM HYDROXIDE SUSP 30 ML UDCUP PO PRN (08:25)
[2018-04-06] MEDS: glipiZIDE 5 MG TABLET PO SCH (08:58)
[2018-04-06] MEDS: CARVEDILOL 25 MG TABLET PO SCH (08:58)
[2018-04-06] MEDS: SPIRONOLACTONE 25 MG TABLET PO SCH (08:58)
[2018-04-06] MEDS: hydroCHLOROthiazide 25 MG TABLET PO SCH (08:58)
[2018-04-06] MEDS: CLOPIDOGREL 75 MG TABLET PO SCH (08:59)
[2018-04-06] MEDS: CHOLECALCIFEROL 1,000 UNIT TABLET PO SCH (08:59)
[2018-04-06] MEDS: ASPIRIN EC 81 MG TABLET PO SCH (08:59)
[2018-04-06] MEDS: LISINOPRIL 20 MG TABLET PO SCH (08:59)
[2018-04-06] MEDS: PANTOPRAZOLE 40 MG TABLET PO SCH (08:59)
== END 2018-04-06 10:57 | disposition home or self-care (01) | DRG 313 ==
LOC: N.ED 11:32 → N.EDINP 13:55 → N.TELEN 14:14
PROVIDERS: ADMIT Internal Medicine Cardiovascular Disease; ATTEND Internal Medicine Cardiovascular Disease

== ENCOUNTER 2019-07-27 05:03 | Inpatient (IN) ==
[2019-07-14 10:51] LABS: Basophils % 0.6 % (0.0-0.8); Eosinophils % 0.6 % (0.00-10.9); Hematocrit 37.4 VOL% (42.0-52.0); Hemoglobin 12.1 GM/DL (14.0-18.0); Immature Granulocytes % 0.2 %; Immature Granulocytes Absolute 0.01 #; Lymphocytes # 1.3 10*3/uL (1.4-4.0); Lymphocytes % 28.2 % (21.2-54.2); Mean Corpuscular HGB Conc 32.4 GM/DL (32-36); Mean Corpuscular Volume 94.2 FL (87-102); Mean Platelet Volume 10.4 FL (9.6-12.0); Monocytes % 8.4 % (1.7-12.7); Platelet Count 279 T/CUMM (130-400); Red Blood Count 3.97 MC/CUMM (3.8-5.5); Red Cell Distribution Width 13.8 % (9.3-17.3); White Blood Count 4.8 T/CUMM (4-12)
[2019-07-14 10:53] LABS: Apearance,Urine CLEAR (Clear); Bacteria,Urine Occasional /HPF (Few); Bilirubin,Urine Negative (Negative); Blood, Urine Negative (Negative); Glucose,Urine (UA) Negative (Negative); Hyaline Casts,Urine 1 /LPF (0-3); Ketones,Urine Negative (Negative); Nitrite,Urine Negative (Negative); Protein,Urine Negative; RBC,Urine <1 /HPF (0-4); Squamous Epithelial Cell,Urine Occasional /HPF (0-10); Urine Color Yellow (Yellow); Urine Specific Gravity 1.015 (1.001-1.035); Urine Urobilinogen < 2.0 EU/DL (0.2-1.0); WBC,Urine 3 /HPF (0-6)
[2019-07-14 11:02] LABS: INR 0.9; PT Patient Result 10.3 SECS (9.6-12.2); Partial Thromboplastin Time 25.2 SECS (20.8-36.0)
[2019-07-14 11:34] LABS: Alanine Aminotransferase 13 U/L (16-61); Albumin 3.4 G/DL (3.4-5.0); Alkaline Phosphatase 85 U/L (45-117); Aspartate Amino Transferase 11 U/L (0-37); Bilirubin,Total < 0.39 MG/DL (0.2-1.0); Blood Urea Nitrogen 35 MG/DL (7-18); Calcium 9.5 MG/DL (8.5-10.1); Estimated Glom Filtration Rate 47 ML/MIN; Glucose 161 MG/DL (74-106); Osmolality,Calculated 285.7 MOS/KG (273-304); Total Protein 7.6 G/DL (6.4-8.3)
[2019-07-27] MEDS ORDERED: DIAZEPAM 5 MG TABLET PO ONE (06:00)
[2019-07-27] MEDS ORDERED: ACETAMINOPHEN 500 MG TABLET PO ONE ×2 (06:00)
[2019-07-27] MEDS ORDERED: GABAPENTIN 400 MG CAPSULE PO ONE (06:00)
[2019-07-27] MEDS ORDERED: VANCOMYCIN INJ 1,000 MG in SODIUM CHLORIDE 0.9% 250 ML IV ONE (06:30)
[2019-07-27] MEDS ORDERED: ceFAZolin 2,000 MG in PREMIX 1 EACH IV ONE (06:30)
[2019-07-27] MEDS ORDERED: BACITRACIN OINT 0.9 GM PACK TOP ONE (06:43)
[2019-07-27] MEDS ORDERED: ROPIVACAINE 0.5% 30 ML VIAL ONE (07:05)
[2019-07-27] MEDS ORDERED: DEXAMETHASONE 4 MG/1 ML VIAL ONE (07:05)
[2019-07-27] MEDS ORDERED: GABAPENTIN 400 MG CAPSULE ONE (07:21)
[2019-07-27] MEDS ORDERED: DIAZEPAM 5 MG TABLET ONE (07:21)
[2019-07-27] MEDS ORDERED: ACETAMINOPHEN 500 MG TABLET ONE (07:21)
[2019-07-27] MEDS ORDERED: FAMOTIDINE 20 MG TABLET ONE (07:22)
[2019-07-27] MEDS ORDERED: VANCOMYCIN 1,000 MG VIAL ONE (07:22)
[2019-07-27] MEDS: LACTATED RINGERS 1,000 ML IV SCH ×6 (07:38→21:23)
[2019-07-27] MEDS ORDERED: fentaNYL 100 MCG/2 ML VIAL ONE (07:44)
[2019-07-27] MEDS ORDERED: MIDAZOLAM 2 MG/2 ML VIAL ONE (07:44)
[2019-07-27] MEDS ORDERED: BUPIVACAINE SPINAL 0.75% 2 ML AMP SPINAL ONE (07:44)
[2019-07-27] MEDS ORDERED: TRANEXAMIC ACID 1,000 MG/10 ML VIAL ONE (07:46)
[2019-07-27] MEDS ORDERED: DEXMEDETOMIDINE 200 MCG/2 ML VIAL ONE (08:14)
[2019-07-27] MEDS ORDERED: DEXTROSE 50% 25 GM/50 ML VIAL IV PRN (08:58)
[2019-07-27] MEDS ORDERED: MORPHINE 4 MG/1 ML VIAL IV PRN ×2 (08:58)
[2019-07-27] MEDS ORDERED: GLUCAGON 1 MG VIAL IM PRN (08:58)
[2019-07-27] MEDS ORDERED: ONDANSETRON 4 MG/2 ML VIAL IV PRN (08:58)
[2019-07-27] MEDS: KETOROLAC 15 MG/1 ML VIAL IV SCH ×3 (09:15→18:40)
[2019-07-27] MEDS ORDERED: propofoL 200 MG/20 ML VIAL IV ONE (10:32)
[2019-07-27] MEDS ORDERED: KETAMINE 500 MG/10 ML VIAL ONE (10:32)
[2019-07-27] MEDS ORDERED: SEVOFLURANE 1 UNIT/15 MINUTE INH ONE (10:32)
[2019-07-27] MEDS ORDERED: PHENYLEPHRINE 1 MG/10 ML SYRINGE IV ONE (10:33)
[2019-07-27] MEDS ORDERED: ePHEDrine 50 MG/ML AMP ONE (10:33)
[2019-07-27] MEDS ORDERED: LACTATED RINGERS 2,000 ML IV ONE (10:33)
[2019-07-27] MEDS ORDERED: GLYCOPYRROLATE 0.4 MG/2 ML VIAL ONE (10:33)
[2019-07-27] MEDS: DOCUSATE SODIUM 100 MG CAPSULE PO SCH ×2 (12:50→21:30)
[2019-07-27] MEDS: CHOLECALCIFEROL 1,000 UNIT TABLET PO SCH (13:05)
[2019-07-27] MEDS: ceFAZolin 2,000 MG in PREMIX 1 EACH IV SCH ×2 (13:06→21:20)
[2019-07-27] MEDS: INSULIN LISPRO 100 UNIT/ML SUBCUT SCH ×3 (14:20→21:29)
[2019-07-27] MEDS: TAMSULOSIN 0.4 MG CAPSULE PO SCH (16:51)
[2019-07-27] MEDS: glipiZIDE 5 MG TABLET PO SCH (21:29)
[2019-07-27] MEDS: LISINOPRIL/HCTZ 20-12.5 MG TABLET PO SCH (21:29)
[2019-07-27] MEDS: carvediloL 25 MG TABLET PO SCH (21:30)
[2019-07-28] MEDS: KETOROLAC 15 MG/1 ML VIAL IV SCH ×2 (00:20→06:12)
[2019-07-28] MEDS: LACTATED RINGERS 1,000 ML IV SCH ×2 (03:10→03:49)
[2019-07-28 05:23] LABS: Basophils % 0.2 % (0.0-0.8); Eosinophils % 0.1 % (0.00-10.9); Hematocrit 30.8 VOL% (42.0-52.0); Immature Granulocytes % 0.5 %; Immature Granulocytes Absolute 0.05 #; Lymphocytes # 0.8 10*3/uL (1.4-4.0); Lymphocytes % 7.3 % (21.2-54.2); Mean Corpuscular HGB Conc 32.5 GM/DL (32-36); Mean Corpuscular Volume 92.5 FL (87-102); Mean Platelet Volume 10.6 FL (9.6-12.0); Monocytes % 8.1 % (1.7-12.7); Neutrophils % 83.8 % (38.7-73.9); Platelet Count 204 T/CUMM (130-400); Red Blood Count 3.33 MC/CUMM (3.8-5.5); Red Cell Distribution Width 13.1 % (9.3-17.3); White Blood Count 10.3 T/CUMM (4-12)
[2019-07-28 05:40] LABS: Calcium 8.7 MG/DL (8.5-10.1); Osmolality,Calculated 277.2 MOS/KG (273-304)
[2019-07-28] MEDS: LISINOPRIL/HCTZ 20-12.5 MG TABLET PO SCH ×2 (08:50→21:06)
[2019-07-28] MEDS: glipiZIDE 5 MG TABLET PO SCH ×2 (08:50→20:59)
[2019-07-28] MEDS: DOCUSATE SODIUM 100 MG CAPSULE PO SCH ×2 (08:51→20:59)
[2019-07-28] MEDS: carvediloL 25 MG TABLET PO SCH ×2 (08:51→20:59)
[2019-07-28] MEDS: CHOLECALCIFEROL 1,000 UNIT TABLET PO SCH (08:51)
[2019-07-28] MEDS: SPIRONOLACTONE 25 MG TABLET PO SCH (08:51)
[2019-07-28] MEDS: ASCORBIC ACID 500 MG TABLET PO SCH (08:51)
[2019-07-28] MEDS: CLOPIDOGREL 75 MG TABLET PO SCH (08:51)
[2019-07-28] MEDS: ASPIRIN EC 81 MG TABLET PO SCH (08:51)
[2019-07-28] MEDS: INSULIN LISPRO 100 UNIT/ML SUBCUT SCH ×4 (08:53→22:08)
[2019-07-28] MEDS: TAMSULOSIN 0.4 MG CAPSULE PO SCH (19:03)
[2019-07-29 05:51] LABS: Basophils % 0.3 % (0.0-0.8); Eosinophils # 0.1 10*3/uL (0.0-0.87); Eosinophils % 1.6 % (0.00-10.9); Hematocrit 27.6 VOL% (42.0-52.0); Hemoglobin 9.1 GM/DL (14.0-18.0); Immature Granulocytes % 0.4 %; Immature Granulocytes Absolute 0.04 #; Lymphocytes % 10.8 % (21.2-54.2); Mean Corpuscular Volume 93.2 FL (87-102); Mean Platelet Volume 10.8 FL (9.6-12.0); Monocytes % 11.4 % (1.7-12.7); Neutrophils % 75.5 % (38.7-73.9); Platelet Count 186 T/CUMM (130-400); Red Blood Count 2.96 MC/CUMM (3.8-5.5); Red Cell Distribution Width 13.5 % (9.3-17.3); White Blood Count 8.9 T/CUMM (4-12)
[2019-07-29] MEDS: DOCUSATE SODIUM 100 MG CAPSULE PO SCH ×2 (08:18→21:53)
[2019-07-29] MEDS: ASPIRIN EC 81 MG TABLET PO SCH (08:19)
[2019-07-29] MEDS: LISINOPRIL/HCTZ 20-12.5 MG TABLET PO SCH ×2 (08:19→21:54)
[2019-07-29] MEDS: CHOLECALCIFEROL 1,000 UNIT TABLET PO SCH (08:19)
[2019-07-29] MEDS: ASCORBIC ACID 500 MG TABLET PO SCH (08:19)
[2019-07-29] MEDS: SPIRONOLACTONE 25 MG TABLET PO SCH (08:19)
[2019-07-29] MEDS: carvediloL 25 MG TABLET PO SCH ×2 (08:20→21:53)
[2019-07-29] MEDS: CLOPIDOGREL 75 MG TABLET PO SCH (08:20)
[2019-07-29] MEDS: glipiZIDE 5 MG TABLET PO SCH ×2 (08:20→21:54)
[2019-07-29] MEDS: INSULIN LISPRO 100 UNIT/ML SUBCUT SCH ×4 (08:21→21:54)
[2019-07-29] MEDS: TAMSULOSIN 0.4 MG CAPSULE PO SCH (18:04)
[2019-07-30 05:33] LABS: Basophils % 0.2 % (0.0-0.8); Eosinophils # 0.2 10*3/uL (0.0-0.87); Eosinophils % 1.8 % (0.00-10.9); Hematocrit 26.9 VOL% (42.0-52.0); Hemoglobin 8.7 GM/DL (14.0-18.0); Immature Granulocytes % 0.2 %; Immature Granulocytes Absolute 0.02 #; Mean Corpuscular HGB Conc 32.3 GM/DL (32-36); Mean Corpuscular Volume 94.4 FL (87-102); Monocytes % 12.3 % (1.7-12.7); Neutrophils % 73.5 % (38.7-73.9); Platelet Count 183 T/CUMM (130-400); Red Blood Count 2.85 MC/CUMM (3.8-5.5); Red Cell Distribution Width 13.5 % (9.3-17.3); White Blood Count 8.3 T/CUMM (4-12)
[2019-07-30] MEDS: LISINOPRIL/HCTZ 20-12.5 MG TABLET PO SCH ×2 (09:44→21:30)
[2019-07-30] MEDS: ASCORBIC ACID 500 MG TABLET PO SCH (09:44)
[2019-07-30] MEDS: glipiZIDE 5 MG TABLET PO SCH ×2 (09:44→23:01)
[2019-07-30] MEDS: CHOLECALCIFEROL 1,000 UNIT TABLET PO SCH (09:44)
[2019-07-30] MEDS: carvediloL 25 MG TABLET PO SCH ×2 (09:45→21:31)
[2019-07-30] MEDS: PANTOPRAZOLE 40 MG TABLET PO PRN (09:45)
[2019-07-30] MEDS: CLOPIDOGREL 75 MG TABLET PO SCH (09:45)
[2019-07-30] MEDS: DOCUSATE SODIUM 100 MG CAPSULE PO SCH ×2 (09:45→21:31)
[2019-07-30] MEDS: ASPIRIN EC 81 MG TABLET PO SCH (09:45)
[2019-07-30] MEDS: SPIRONOLACTONE 25 MG TABLET PO SCH (09:45)
[2019-07-30] MEDS: INSULIN LISPRO 100 UNIT/ML SUBCUT SCH ×4 (09:52→23:01)
[2019-07-30] MEDS: MAGNESIUM HYDROXIDE SUSP 30 ML UDCUP PO PRN (12:55)
[2019-07-30] MEDS: TAMSULOSIN 0.4 MG CAPSULE PO SCH (19:19)
[2019-07-31] MEDS: MAGNESIUM HYDROXIDE SUSP 30 ML UDCUP PO PRN ×2 (03:36→09:25)
[2019-07-31] MEDS: CHOLECALCIFEROL 1,000 UNIT TABLET PO SCH (09:26)
[2019-07-31] MEDS: DOCUSATE SODIUM 100 MG CAPSULE PO SCH ×4 (09:26→21:54)
[2019-07-31] MEDS: glipiZIDE 5 MG TABLET PO SCH ×2 (09:26→21:54)
[2019-07-31] MEDS: ASPIRIN EC 81 MG TABLET PO SCH (09:27)
[2019-07-31] MEDS: INSULIN LISPRO 100 UNIT/ML SUBCUT SCH ×4 (09:27→21:55)
[2019-07-31] MEDS: SPIRONOLACTONE 25 MG TABLET PO SCH (09:27)
[2019-07-31] MEDS: CLOPIDOGREL 75 MG TABLET PO SCH (09:27)
[2019-07-31] MEDS: LISINOPRIL/HCTZ 20-12.5 MG TABLET PO SCH ×2 (09:27→21:57)
[2019-07-31] MEDS: carvediloL 25 MG TABLET PO SCH ×2 (09:27→21:54)
[2019-07-31] MEDS: ASCORBIC ACID 500 MG TABLET PO SCH (09:28)
[2019-07-31] MEDS ORDERED: LACTULOSE 20 GM/30 ML UDCUP PO ONE (11:51)
[2019-07-31] MEDS: TAMSULOSIN 0.4 MG CAPSULE PO SCH (18:16)
[2019-08-01] MEDS: MAGNESIUM HYDROXIDE SUSP 30 ML UDCUP PO PRN ×2 (08:58→16:23)
[2019-08-01] MEDS: CLOPIDOGREL 75 MG TABLET PO SCH (08:58)
[2019-08-01] MEDS: CHOLECALCIFEROL 1,000 UNIT TABLET PO SCH (08:58)
[2019-08-01] MEDS: carvediloL 25 MG TABLET PO SCH ×2 (08:58→21:43)
[2019-08-01] MEDS: ASPIRIN EC 81 MG TABLET PO SCH (08:58)
[2019-08-01] MEDS: LISINOPRIL/HCTZ 20-12.5 MG TABLET PO SCH ×2 (08:59→21:44)
[2019-08-01] MEDS: SPIRONOLACTONE 25 MG TABLET PO SCH (08:59)
[2019-08-01] MEDS: DOCUSATE SODIUM 100 MG CAPSULE PO SCH ×3 (09:00→21:41)
[2019-08-01] MEDS: PANTOPRAZOLE 40 MG TABLET PO PRN (09:00)
[2019-08-01] MEDS: glipiZIDE 5 MG TABLET PO SCH ×2 (09:00→21:42)
[2019-08-01] MEDS: INSULIN LISPRO 100 UNIT/ML SUBCUT SCH ×4 (09:01→21:41)
[2019-08-01] MEDS: ASCORBIC ACID 500 MG TABLET PO SCH (09:02)
[2019-08-01] MEDS ORDERED: BISACODYL 10 MG SUPP RECTAL ONE (11:17)
[2019-08-01] MEDS: TAMSULOSIN 0.4 MG CAPSULE PO SCH (18:25)
[2019-08-02] MEDS: INSULIN LISPRO 100 UNIT/ML SUBCUT SCH (07:42)
[2019-08-02 07:56] VITALS: BP 135/47
[2019-08-02] MEDS: DOCUSATE SODIUM 100 MG CAPSULE PO SCH ×2 (09:00→09:09)
[2019-08-02] MEDS: ASPIRIN EC 81 MG TABLET PO SCH (09:09)
[2019-08-02] MEDS: glipiZIDE 5 MG TABLET PO SCH (09:09)
[2019-08-02] MEDS: carvediloL 25 MG TABLET PO SCH (09:09)
[2019-08-02] MEDS: SPIRONOLACTONE 25 MG TABLET PO SCH (09:09)
[2019-08-02] MEDS: CLOPIDOGREL 75 MG TABLET PO SCH (09:10)
[2019-08-02] MEDS: ASCORBIC ACID 500 MG TABLET PO SCH (09:10)
[2019-08-02] MEDS: CHOLECALCIFEROL 1,000 UNIT TABLET PO SCH (09:10)
[2019-08-02] MEDS: LISINOPRIL/HCTZ 20-12.5 MG TABLET PO SCH (09:10)
== END 2019-08-02 10:30 | disposition home health service (06) | DRG 470 ==
LOC: N.OR 05:03 → N.SDSINP 05:04 → N.3E 10:02
PROVIDERS: ADMIT Orthopaedic Surgery; ATTEND Orthopaedic Surgery